=== PATIENT | male | born 1985 | race Caucasian/White ===

== ENCOUNTER 2025-04-24 05:04 | Emergency (ER) | payer OTHER ==
[~2025-04-24] VITALS: Ht 177.8 cm; Wt 122.5 kg
[2025-04-24] MEDS ORDERED: KETOROLAC TROMETHAMINE INJ 30 MG/ML VIAL ONE (06:28)
[2025-04-24] MEDS: KETOROLAC TROMETHAMINE INJ 30 MG/ML VIAL IM ONE (06:29)
[2025-04-24 06:47] VITALS: BP 137/85; TEMP 98; O2SAT 99
== END 2025-04-24 06:47 | disposition home or self-care (01) ==
LOC: ER 05:08
DX: M54.6 Pain in thoracic spine (principal); Z60.2 Problems related to living alone
CPT/HCPCS: 99283; 96372; J1885